=== PATIENT | male | born 1995 | race Caucasian/White ===

== ENCOUNTER 2023-05-26 08:00 | Outpatient (RCR) | payer OTHER, SELFPAY ==
--- NOTE | 2023-05-07 10:46 | HP.PTEVAL_ITS ---
Patient's Visit Information Visit Information Visit Information: NELSON NUNEZ is a 28 year old M referred to Physical Therapy by Dr. Jac Damian MD with a diagnosis of Chronic Right Knee Pain. Date of Evaluation: 05/07/23 Physical Therapist: Laisha Grant DPT Visit Plan Frequency: 1x/Week Duration: 4 Weeks Plan: Strength/Stabilization- Dry Needling Straight Leg Raise, Clams with BTB, Hamstring Stretching, Prone Hip Extn with glut activation, Prone Quad Stretch Subjective Subjective: Patient reports that he has had knee pain since [place]- a lot of pain comes and goes- insidious onset. He has always been active. Now is the best its been since its started. The pain is under the knee cap- no radiating pain. Describes the pain as sharp and shooting. Aggravating: sitting with the knee bent for long periods of time. Eases: keeping it straight or getting up and moving it around. He has not had any x-rays or MRI. He has not tried anti- inflammatories. Worst: 8/10- during the flare up- it can be hours at a time. Best: 0/10. He has been painfree for a week and a half or two weeks. Not currently working out. 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 No previous injuries to the knee. No back or hip pains. No N/T. PMHx: none Meds: vivance Objective Objective: Posture: fair throughout sitting and standing Gait: mild pes planus and mild valgus at the knees- no deviation with walking or running Squat: weight shift to the left- no pop of the heels SLS: 30 sec mild hip drop. Palpation: tender along patellar tendon under the patella Flex: HS: mod, Gastroc: mod , Quad: mild ROM: WFL in all planes- discomfort at end range flexion Strength: Core: fair, Hip: 4+/5, Knee: 5/5 Ankle: 5/5. Stairs: asc/desc 8 recip without HR- mild dec control with descent Special Tests R Knee Elissa - Meniscus: Negative R Knee Valgus - MCL: Negative R Knee Varus - LCL: Negative R Knee Patellar Apprehension - PFS: Positive R Knee Patellar Grind - PFS: Positive Balance/Special Test Scores Lower Extremity Functional Score: 60 Goals Goal 1:: Patient will be I with HEP and progression Goal Time Frame: 4-6 Weeks Goal 2:: Patient will squat with normal mechanics Goal Time Frame: 4-6 Weeks Goal 3:: Patient will report 80% improvement Goal Time Frame: 4-6 Weeks Rehabilitation Potential Physical Therapy Diagnosis: Patient presents with hypomobility- he has decreased LE and core strength/stabilization, flex and muscular endurance leading to increased pain with ADL's. Rehabilitation Potential: Good Anticipated Interventions Patient/Client Instruction: Educate patient on: Benefits of Fitness Program Therapeutic Exercise to Include: Strength training, Endurance training, Balance training, Coordination, Agility training, Body mechanics, Postural training, Flexibilty training, Gait and locomotor training, Neuromotor development, Passive ROM, Active ROM, Dynamic Lumbar Stabilization and Scapular Strength/St abilization For the Purpose of:: To improve muscle performance and motor function Manual Therapy Techniques to Include: Functional dry needling IF ES: Yes Cryotherapy (ice pack, ice massage): Yes Thermo therapy (hot pack): Yes Ultrasound (thermal/non thermal): Yes Text: Thank you for the opportunity to evaluate your patient. For Medicare and Medicare HMO plans, please review the plan of care and approve it. It will need to be FAXED BACK to us at [phone] for Medicare purposes. For Medicare only, by signing this I certify the plan of care. Please let me know if there are questions or concerns regarding this plan of care. Physician Signature: Date:
== END 2023-05-26 19:00 | disposition home or self-care (01) ==
LOC: PT 08:00
PROVIDERS: PCP Family Medicine; Referring Provider Family Medicine; Visit Provider Family Medicine
DX: M25.561 Pain in right knee (principal); G89.29 Other chronic pain
CPT/HCPCS: 97110; 97162